=== PATIENT | male | born 1985 | race Caucasian/White ===

== ENCOUNTER 2020-03-04 12:12 | Inpatient (IN) | payer MEDICAID, SELFPAY ==
[2020-03-04] VITALS (10 sets, daily range): BP systolic 118–145; BP diastolic 74–99; PULSE 68–102; RESP 10–23; TEMP 36.4–37.4; O2SAT 97–99; BMI 19.8
--- NOTE | ~2020-03-04 | XR_ITS ---
XR abdomen NG/feed tube insert DATE: 03/04/2020 14:12 INDICATION: Gastrointestinal bleeding. NG tube placement. TECHNIQUE: Portable upright AP view on 03/04/2020 at 1407 hours COMPARISON: None FINDINGS: An NG tube is present in the left upper quadrant of the abdomen within the upper body of th e stomach, the proximal port approximately 1.5-2 cm distal to the diaphragmatic hiatus. Nonspecific bowel gas pattern without evidence of obstruction. The psoas shadows are intact. No visce romegaly is evident. The lower lung zones are clear. No pleural effusion is evident. Heart size is normal. IMPRESSION: NG tube in upper body of stomach Reviewed, dictated and finalized at [facility]. Reviewed, dictated and finalized at [facility].
--- NOTE | 2020-03-04 13:15 | ECG_ITS ---
Measurements Intervals [place] Rate: 67 P: 81 FL: 141 QRS: 89 QRSD: 108 T: 97 QT: 409 QTc: 433 Interpretive Statements SINUS RHYTHM BORDERLINE T WAVE ABNORMALITY- HIGH LATERAL LEADS BORDERLINE ECG Electronically Signed On 03-04-2020 13:55:31 CDT by Simeon Marina D.O.
[2020-03-04] MEDS: SODIUM CHLORIDE 0.9% IV 1,000 ML 999 ML IV CONT (13:22)
[2020-03-04] MEDS: PANTOPRAZOLE SODIUM IV 40 MG VIAL 80 MG IV PUSH (13:24)
[2020-03-04] MEDS: ONDANSETRON INJ 4 MG/2 ML VIAL IV PUSH (13:24)
--- NOTE | 2020-03-04 13:33 | ED.ALCOHOL ---
HPI - Alcohol General Chief Complaint: Alcohol Stated Complaint: Vomiting Blood, Alcohol Detox Time Seen by Provider: 03/04/20 12:32 Source: patient Mode of arrival: ambulatory Limitations: no limitations History of Present Illness HPI narrative: This patient is a 34 year old male with history of alcohol abuse who presents for evaluation of hematemesis. Patient states he has been binging alcohol for 1 week due to a personal loss. THis morning he was trying to drink alcohol and he developed nausea and hematemesis. He states he was vomiting blood for 2 hours. He denies abdominal pain, diarrhea. His last BM was yesterday and he states it was normal. He denies chest pain or sob. He just reports he has nonstop hiccups. He reports that he has been drinking 2 pints of hard liquor daily for 5 days and he has had very little to eat. He states 5 years ago he had hematemesis and he was told it due to either jose tsai tear or an ulcer. He denies history of cirrhosis or esophageal varices. Related Data Allergies Allergy/AdvReac Type Severity Reaction Status Date / Time Sulfa (Sulfonamide Allergy Unknown Unknown Verified 03/25/19 17:39 Antibiotics) lorazepam [From Ativan] Allergy Unknown Verified 03/04/20 12:25 Review of Systems Review of Systems: All systems reviewed & are unremarkable except as noted in HPI and below Constitutional: Constitutional: Denies chills, Reports fatigue and Denies fever(s) Respiratory: Respiratory: Denies cough and Denies dyspnea Gastrointestinal: Gastrointestinal: Denies abdominal pain, Reports hematochezia, Denies diarrhea, Reports nausea and Reports vomiting PMFSH Past Medical History Medical History (Updated 03/04/20 @ 15:41 by Aleida Larsen MD) Upper GI bleed Surgical History Surgical History (Updated 03/04/20 @ 13:37 by Aleida Larsen MD) H/O arthroscopic knee surgery Social History Social History (Updated 03/04/20 @ 13:38 by Aleida Larsen MD) Smoking packs per day: 1 Smoking cigarettes per day: 20.0 Smoking status: Current every day smoker Alcohol intake: current Substance use: never Exam Const: General: alert Orientation/consciousness: patient oriented x3 HENMT: Head: normocephalic and atraumatic Ears: TM's normal bilaterally General nose exam: No nasal polyps present Face and sinus: face symmetric Throat: posterior oropharynx normal Eyes: Pupils: Equal, round and reactive pupils present EOM: EOMs intact bilaterally Chest: Chest palpation & inspection: normal inspection of the chest Resp: Effort & Inspection: normal respiratory effort and no retractions Auscultation: clear to auscultation bilaterally Cardio: Rate: regular rate Rhythm: regular rhythm Heart sounds: no murmurs GI: GI Palp: Yes Soft to palpation, No Tenderness to palpation present (GI), No Guarding due to palpation present (GI), No Rigid due to palpation and No Hernia present Rectal Exam: heme negative stool Skin: General skin exam: normal color Rashes: no rashes Course Consultations Consultation #1: I Discussed case with Dr. Archibald who will consult and perform EGD in the morning. Date: 03/04/20 Time: 15:17 Consultation #2: I Discussed case with Nadia Mendoza, hospitalist [employer] TECHNICIAN who accepts patient to IMU Date: 03/04/20 Time: 15:25 Vital Signs Vital signs: Vital Signs Temperature 97.5 F L 03/04/20 12:20 Pulse Rate 95 03/04/20 12:20 Respiratory Rate 18 03/04/20 12:20 Blood Pressure 141/91 H 03/04/20 12:20 Pulse Oximetry 97 03/04/20 12:20 Temperature 97.5 F L 03/04/20 12:20 Pulse Rate 92 03/04/20 18:34 Respiratory Rate 23 H 03/04/20 18:34 Blood Pressure 128/99 H 03/04/20 18:34 Pulse Oximetry 99 03/04/20 18:00 MDM - Alcohol Lab Data Attestation: I reviewed the patient's lab results. Result diagrams: 03/04/20 13:45 03/04/20 13:45 Labs: Lab Results 03/04/20 03/04/20 03/04/20 Range/Units
[2020-03-04 13:54] LABS: Basophils Absolute Auto 0.1 K/mm3 (0.0-0.1); Basophils Percent Auto 0.9 % (0.2-1.2); Eosinophils Absolute Auto 0.2 K/mm3 (0-0.3); Eosinophils Percent Auto 2.8 % (0-4.4); Hematocrit 49.1 % (42.0-52.0); Hemoglobin 17.8 g/dL (14.0-18.0); Immature Granulocyte Absolute 0.02 K/mm3 (0.00-0.031); Immature Granulocyte Percent A 0.3 % (0-0.5); Lymphocytes Absolute Auto 2.54 K/mm3 (0.9-3.2); Lymphocytes Percent Auto 32.7 % (18.3-44.2); Mean Corpuscular HGB Conc 36.3 g/dl (32-36); Mean Corpuscular Hemoglobin 31.4 pg (26-34); Mean Corpuscular Volume 86.6 fl (80-100); Mean Platelet Volume 9.6 fl (7.4-10.4); Monocytes Absolute Auto 0.5 K/mm3 (0.1-0.6); Monocytes Percent Auto 6.4 % (2.6-8.5); Neutrophils Absolute Auto 4.4 K/mm3 (1.3-6.7); Neutrophils Percent Auto 56.9 % (45.5-73.1); Platelet Count Result 140 k/mm3 (150-375); Red Blood Count 5.67 M/mm3 (4.6-6.20); Red Cell Distribution Width 11.9 % (11.5-14.5); White Blood Count 7.8 K/mm3 (4.5-10.0)
--- NOTE | 2020-03-04 14:04 | PC.NURSE ---
NG tube placed. Dark blood through tubing coming. Xray called for KUB
[2020-03-04 14:05] LABS: INR 0.9; Partial Thromboplastin Time 22.4 SECONDS (22.3-36.8); Prothrombin Time 12.1 Seconds (11.1-14.7)
[2020-03-04 14:06] LABS: Alanine Aminotransferase 60 U/L (4-50); Alkaline Phosphatase 97 U/L (38-126); Anion Gap 25.6 mmol/L (7-16); Aspartate Amino Transferase 149 U/L (17-59); Bilirubin,Total 1.2 mg/dL (0.2-1.3); Blood Urea Nitrogen 12 mg/dL (9-20); Calcium 9.1 mg/dL (8.4-10.2); Carbon Dioxide 23 mmol/L (22-30); Chloride 95 mmol/L (98-107); Estimated CRCL calculation 105 ml/min; Estimated Glomerular Filt Rate > 60; Glucose 86 mg/dL (75-110); Lipase 236 U/L (23-300); Magnesium 2.1 mg/dL (1.6-2.3); Potassium 3.6 mmol/L (3.4-5.0); Sodium 140 mmol/L (137-145)
[2020-03-04 14:19] LABS: Ethanol 325 mg/dL (<10)
--- NOTE | 2020-03-04 14:32 | PC.NURSE ---
Verbal orders from EDP to push NG tubing 2 cm and do lavage suctioning
--- NOTE | 2020-03-04 20:15 | ADMGEN ---
This patient, Kash Hendricks, was admitted to IMU Room 204-01 FROM ER 03/04/201904. Patient/family oriented to hospital policies and general routines including ID bracelet, bed and alarms, visiting hours, pain management, procedures, bathroom and other care routines, personal items, smoking policy, room service/diet, and visiting hours. Valuables list has been completed. Information on how to activate the Rapid Response Team has been discussed. Patient/Family are encouraged to report perceived risks to care and to ask questions if they do not understand what they are told or what they should do.
--- NOTE | 2020-03-04 20:39 | PM.IMHP ---
H&P: HPI History of Present Illness Date/Time: 03/04/20 20:39 Chief complaint: Upper GI hemorrhage, alcohol abuse Narrative: This is a pleasant 34 year old male with known history of alcohol abuse and previous GI bleed who presented to the hospital after vomiting up blood at home today. 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 He also admits that he has had thoughts of harming himself and his previous work partner. His last alcoholic drink was around 8 am this morning. He denies any dark black stools or bright red rectal bleeding. Tonight he feels very anxious, shaky, nauseated and diaphoretic. He denies any recent fever, chills, cough, shortness of breath, abdominal pain, dysuria, hematuria or diarrhea. His last EGD was about 10 years ago and at that time he was diagnosed with a Crystal-Hallman Tear. ER provider has consulted GI specialist, Dr. Archibald. No other complaints. Review of Systems Review of Systems: All systems reviewed & are unremarkable except as noted in HPI and below PMFSH Past Medical History Medical History Upper GI bleed Surgical History Surgical History H/O arthroscopic knee surgery Family History Family History Father Social History Social History Smoking packs per day: 0.5 Smoking cigarettes per day: 10.0 Years smoked: 17 Smoking pack-years: 8.50 Smoking status: Current every day smoker Tobacco type: cigarettes Alcohol intake: current Drinks per week: 7 Substance use: current Substance use type: marijuana and other Other substance usage details: LSD Gender identity (if verbalized by the patient): Male Sexual Orientation (if Verbalized by the Patient): Straight or Heterosexual Spiritual care concerns: No Meds Home Medications and Allergies Home Medications Medication Instructions Recorded Confirmed Type No Home Medications 03/04/20 03/04/20 History Allergies Allergy/AdvReac Type Severity Reaction Status Date / Time Sulfa (Sulfonamide Allergy Unknown Unknown Verified 08/26/19 17:39 Antibiotics) lorazepam [From Ativan] Allergy Unknown Verified 03/04/20 12:25 Vital Signs Vital Signs - 24 hr 03/04/20 12:20 03/04/20 12:49 03/04/20 15:17 Temperature 36.4 C L Pulse Rate 95 84 102 H Respiratory Rate 18 10 L 20 Blood Pressure 141/91 H 129/94 H 143/88 H Pulse Oximetry 97 97 97 03/04/20 16:13 03/04/20 18:00 03/04/20 18:34 Temperature Pulse Rate 90 68 92 Respiratory Rate 11 L 16 23 H Blood Pressure 118/79 125/74 128/99 H Pulse Oximetry 98 99 03/04/20 19:05 03/04/20 20:00 Temperature 37.4 C Pulse Rate 97 85 Respiratory Rate 16 Blood Pressure 124/85 124/85 Pulse Oximetry 98 Exam Const: General: cooperative, alert, awake, in distress moderate, diaphoretic and other (Anxious++ ) Nutritional Appearance: thin Orientation/consciousness: patient oriented x3 HENMT: Head: normal to inspection General nose exam: Normal external nose present Face and sinus: normal facial exam Mouth: Yes Normal oral and palatal mucosa present and Yes oropharynx normal Eyes: Pupils: Equal, round and reactive pupils present EOM: EOMs intact bilaterally Neck: Neck: supple and no JVD Thyroid: thyroid normal Lymphatic: lymphadenopathy not noted Resp: Effort & Inspection: normal respiratory effort Auscultation: clear to auscultation bilaterally Cardio: Rate: regular rate Rhythm: regular rhythm Heart sounds: no murmurs GI: Inspection: normal to inspection Auscultation: normal bowel sounds Skin: General skin exam: normal color and no rashes or lesions noted Neuro: General: oriented to person, oriented to place and other (Visible
[2020-03-04 20:51] LABS: Hematocrit 40.9 % (42.0-52.0); Hemoglobin 14.9 g/dL (14.0-18.0)
--- NOTE | 2020-03-04 21:39 | PC.NURSE ---
This patient, Kash Hendricks, was transferred to icu-7 on 03/04/20 at 2139. Personal belongings sent with patient. Belongings list checked and signed with receiving [ ]. Report given to BRUNA JAMISON [ ]. Appropriate documentation sent with patient.
[2020-03-05] VITALS (15 sets, daily range): BP systolic 126–154; BP diastolic 76–102; PULSE 55–105; RESP 12–23; TEMP 36.3–37.3; O2SAT 96–100
[2020-03-05] MEDS: SODIUM CHLORIDE 0.9% IV 1,000 ML 125 ML IV CONT ×2 (01:16→13:06)
[2020-03-05 01:19] LABS: Hematocrit 40.2 % (42.0-52.0); Hemoglobin 14.5 g/dL (14.0-18.0)
[2020-03-05 04:49] LABS: Basophils Percent Auto 0.4 % (0.2-1.2); Eosinophils Absolute Auto 0.1 K/mm3 (0-0.3); Eosinophils Percent Auto 1.9 % (0-4.4); Hematocrit 38.4 % (42.0-52.0); Hemoglobin 13.7 g/dL (14.0-18.0); Immature Granulocyte Absolute 0.02 K/mm3 (0.00-0.031); Immature Granulocyte Percent A 0.3 % (0-0.5); Lymphocytes Absolute Auto 0.91 K/mm3 (0.9-3.2); Lymphocytes Percent Auto 12.1 % (18.3-44.2); Mean Corpuscular HGB Conc 35.7 g/dl (32-36); Mean Corpuscular Hemoglobin 31.1 pg (26-34); Mean Corpuscular Volume 87.1 fl (80-100); Mean Platelet Volume 9.3 fl (7.4-10.4); Monocytes Absolute Auto 0.7 K/mm3 (0.1-0.6); Monocytes Percent Auto 9.7 % (2.6-8.5); Neutrophils Absolute Auto 5.7 K/mm3 (1.3-6.7); Neutrophils Percent Auto 75.6 % (45.5-73.1); Platelet Count Result 97 k/mm3 (150-375); Red Blood Count 4.41 M/mm3 (4.6-6.20); Red Cell Distribution Width 11.9 % (11.5-14.5); White Blood Count 7.5 K/mm3 (4.5-10.0)
[2020-03-05 05:09] LABS: Alanine Aminotransferase 46 U/L (4-50); Albumin Level 3.9 g/dL (3.5-5.1); Alkaline Phosphatase 63 U/L (38-126); Anion Gap 11.5 mmol/L (7-16); Aspartate Amino Transferase 83 U/L (17-59); Bilirubin,Total 1.5 mg/dL (0.2-1.3); Blood Urea Nitrogen 15 mg/dL (9-20); Calcium 8.7 mg/dL (8.4-10.2); Carbon Dioxide 27 mmol/L (22-30); Chloride 101 mmol/L (98-107); Estimated CRCL calculation 110 ml/min; Estimated Glomerular Filt Rate > 60; Glucose 98 mg/dL (75-110); Potassium 3.5 mmol/L (3.4-5.0); Sodium 136 mmol/L (137-145)
--- NOTE | 2020-03-05 09:06 | WPDGICN ---
Assessment and Plan Assessment and plan (1) Alcohol abuse: Code(s): F10.10 - Alcohol abuse, uncomplicated Status: Acute Assessment and Plan: Patient with a long history of alcoholism strongly encourage alcohol rehab. (2) Acute upper gastrointestinal bleeding: Code(s): K92.2 - Gastrointestinal hemorrhage, unspecified Status: Acute Assessment and Plan: Patient with large amount of upper GI blood loss hematemesis yesterday. Ulcer disease gastritis Crystal-Hallman tear and esophageal varices are all considerations. Plan is for EGD to assess more thoroughly continue proton pump inhibitor therapy in the interim. Monitor hemoglobin closely. (3) Transaminitis: Code(s): R74.0 - Nonspecific elevation of levels of transaminase and lactic acid dehydrogenase [LDH] Status: Acute Assessment and Plan: Elevated AST likely on the basis of alcohol liver disease. Patient encouraged to abstain from alcohol. GI Consult Note Consult date/time: 03/05/20 09:06 HPI: Kash Hendricks is a 34 year old male Seen in evaluation at the request of the emergency room. Patient has a longstanding history of alcoholism in heavy alcohol intake. He decided to enter rehab yesterday and prior to presenting to the emergency room took 1 last drink. He noticed he became nauseated and vomited a large amount of bright red blood. He subsequently presented to the emergency room NG tube lavage continued to reveal blood that has lavage clear throughout the night. Patient denies any history of ongoing abdominal pain. He has been drinking heavily for many years. He does have a history of previous GI bleed with Crystal-Hallman tear 10 years ago that required endoscopy for therapy. He takes no ongoing medications. Family history is noncontributory. Past medical history includes previous arthroscopy. Review of Systems Review of Systems: All systems reviewed & are unremarkable except as noted in HPI and below PMFSH Past Medical History Medical History Upper GI bleed Surgical History Surgical History H/O arthroscopic knee surgery Family History Family History Father Social History Social History Smoking packs per day: 0.5 Smoking cigarettes per day: 10.0 Years smoked: 17 Smoking pack-years: 8.50 Smoking status: Current every day smoker Tobacco type: cigarettes Alcohol intake: current Drinks per week: 7 Substance use: current Substance use type: marijuana and other Other substance usage details: LSD Gender identity (if verbalized by the patient): Male Sexual Orientation (if Verbalized by the Patient): Straight or Heterosexual Spiritual care concerns: No Meds Home Medications and Allergies Home Medications Medication Instructions Recorded Confirmed Type No Home Medications 03/04/20 03/04/20 History Allergies Allergy/AdvReac Type Severity Reaction Status Date / Time Sulfa (Sulfonamide Allergy Unknown Unknown Verified 03/25/19 17:39 Antibiotics) lorazepam [From Ativan] Allergy Unknown Verified 03/04/20 12:25 Vital Signs Vital Signs - 24 hr 03/04/20 12:20 03/04/20 12:49 03/04/20 15:17 Temperature 97.5 F L Pulse Rate 95 84 102 H Pulse Rate [Apical Monitor] Pulse Rate [Left Radial NIBP] Respiratory Rate 18 10 L 20 Blood Pressure 141/91 H 129/94 H 143/88 H Pulse Oximetry 97 97 97 03/04/20 16:13 03/04/20 18:00 03/04/20 18:34 Temperature Pulse Rate 90 68 92 Pulse Rate [Apical Monitor] Pulse Rate [Left Radial NIBP] Respiratory Rate 11 L 16 23 H Blood Pressure 118/79 125/74 128/99 H Pulse Oximetry 98 99 03/04/20 19:05 03/04/20 20:00 03/04/20 21:00 Temperature 99.3 F 97.9 F Pulse Rate 97 85 89
[2020-03-05 09:08] LABS: Hematocrit 37.3 % (42.0-52.0); Hemoglobin 13.4 g/dL (14.0-18.0)
[2020-03-05] MEDS: LACTATED RINGERS 1,000 ML 150 ML IV CONT (10:05)
--- NOTE | 2020-03-05 10:32 | WPDANESEPPF ---
Anes - Initial Pre Proc Eval Procedure: Operation Date: 03/05/20 10:30 Proposed Procedures p Esophagogastroduodenoscopy - Jeffrey Archibald MD Date/Time: 03/05/20 10:32 Surgeon: Max Mcintosh MD Pre Op Diagnosis: Upper GI hemorrhage, alcohol abuse Patient Data Age: 34 Gender: M Height: 6 ft 1 in Weight: 68.3 kg Last Vital Signs Temp 99.1 F 03/05/20 10:09 Pulse 72 03/05/20 10:09 Resp 18 03/05/20 10:09 BP 137/93 H 03/05/20 10:09 Pulse Ox 98 03/05/20 10:09 Allergies Allergy/AdvReac Type Severity Reaction Status Date / Time Sulfa (Sulfonamide Allergy Unknown Unknown Verified 03/05/20 10:06 Antibiotics) lorazepam [From Ativan] Allergy Unknown Verified 03/05/20 10:06 Home Medications Medication Instructions Recorded Confirmed Type No Home Medications 03/04/20 03/05/20 History Laboratory Tests 03/04/20 03/04/20 03/04/20 13:45 13:45 13:45 WBC 7.8 K/mm3 K/mm3 (4.5-10.0) RBC 5.67 M/mm3 M/mm3 (4.6-6.20) Hgb 17.8 g/dL g/dL (14.0-18.0) Hct 49.1 % % (42.0-52.0) MCV 86.6 fl fl (80-100) MCH 31.4 pg pg (26-34) MCHC 36.3 g/dl H g/dl (32-36) RDW 11.9 % % (11.5-14.5) Plt Count 140 k/mm3 L k/mm3 (150-375) MPV 9.6 fl fl (7.4-10.4) Immature Gran % (Auto) 0.3 % % (0-0.5) Neut % (Auto) 56.9 % % (45.5-73.1) Lymph % (Auto) 32.7 % % (18.3-44.2) [place] % (Auto) 6.4 % % (2.6-8.5) Eos % (Auto) 2.8 % % (0-4.4) Baso % (Auto) 0.9 % % (0.2-1.2) Lymph # (Auto) 2.54 K/mm3 K/mm3 (0.9-3.2) [place] # (Auto) 0.5 K/mm3 K/mm3 (0.1-0.6) Eos # (Auto) 0.2 K/mm3 K/mm3 (0-0.3) Baso # (Auto) 0.1 K/mm3 K/mm3 (0.0-0.1) Abs Immat Gran (auto) 0.02 K/mm3 K/mm3 (0.00-0.031) Absolute Neuts (auto) 4.4 K/mm3 K/mm3 (1.3-6.7) Absolute Nucleated RBC 0.0 K/mm3 K/mm3 (0.0-0.012) Nucleated RBC % 0.0 % % (0.0-0.2) PT 12.1 Seconds Seconds (11.1-14.7) INR 0.9 APTT 22.4 SECONDS SECONDS (22.3-36.8) Sodium 140 mmol/L mmol/L (137-145) Potassium 3.6 mmol/L mmol/L (3.4-5.0) Chloride 95 mmol/L L mmol/L (98-107) Carbon Dioxide 23 mmol/L mmol/L (22-30) Anion Gap 25.6 mmol/L H mmol/L (7-16) BUN 12 mg/dL mg/dL (9-20) Creatinine 0.90 mg/dL mg/dL (0.7-1.3) Estim Creat Clear Calc 105 ml/min ml/min Estimated GFR > 60 (59 - ) Glucose 86 mg/dL mg/dL (75-110) Calcium 9.1 mg/dL mg/dL (8.4-10.2) Magnesium 2.1 mg/dL mg/dL (1.6-2.3) Total Bilirubin 1.2 mg/dL mg/dL (0.2-1.3) AST 149 U/L H U/L (17-59) ALT 60 U/L H U/L (4-50) Alkaline Phosphatase 97 U/L U/L (38-126) Total Protein 8.0 g/dL g/dL (6.3-8.2) Albumin 5.0 g/dL g/dL (3.5-5.1) Lipase 236 U/L U/L (23-300) Ethyl Alcohol Blood Type Antibody Screen 03/04/20 03/04/20 03/04/20 13:45 13:45 20:36 WBC RBC Hgb 14.9 g/dL g/dL (14.0-18.0) Hct 40.9 % L % (42.0-52.0) MCV MCH MCHC RDW Plt Count MPV Immature Gran % (Auto) Neut % (Auto) Lymph % (Auto) [place] % (Auto) Eos % (Auto) Baso % (Auto) Lymph # (Auto) [place] # (Auto) Eos # (Auto) Baso # (Auto) Abs Immat Gran (auto) Absolute Neuts (auto) Absolute Nucleated RBC Nucleated RBC % PT INR APTT Sodium Potassium Chloride Carbon D
[2020-03-05] MEDS: SIMETHICONE ORAL SUSPENSION 20 MG/0.3 ML 30 ML BOTTLE 0.6 ML PO (10:38)
[2020-03-05] MEDS: SUCRALFATE SUSP 100 MG/ML 10 ML UDC 1000 MG PO ×3 (12:49→23:31)
[2020-03-05] MEDS: chlordiazePOXIDE 25 MG CAPSULE PO ×2 (12:49→17:33)
--- NOTE | 2020-03-05 18:49 | PM.IMPN ---
Progress Note: A&P Assessment and Plan (1) Acute upper gastrointestinal bleeding: Code(s): K92.2 - Gastrointestinal hemorrhage, unspecified Status: Acute Assessment and Plan: Hgb 17.8 and has dropped to 13.4 but could be related to IV fluids as well. EGD performed today showing reflux esophagitis grade 2 which could be contributing to bleeding. No side acute gastric ulcer as well as evidence of NG tube trauma. Continue Protonix. Continue Carafate. Appreciate GI input. Stop IV fluids when eating okay. (2) Alcohol withdrawal: Qualifiers: Complication of substance-induced condition: with unspecified complication Qualified Code(s): F10.239 - Alcohol dependence with withdrawal, unspecified Code(s): F10.239 - Alcohol dependence with withdrawal, unspecified Status: Acute Assessment and Plan: [facility] protocol in place and currently at 8. Scheduled Librium started. Valium available as needed for signs or symptoms of withdrawal. Add thiamine and folate. (3) Alcohol abuse: Code(s): F10.10 - Alcohol abuse, uncomplicated Status: Acute Assessment and Plan: patient has been educated about the benefits of abstain from alcohol. Lodging Facilities Manager to provide information about rehab an outpatient services. (4) Suicidal ideation: Code(s): R45.851 - Suicidal ideations Status: Acute Assessment and Plan: Patient denies suicide ideation at this time. He states he was inebriated. He is stable for discharge. Will have Crisis evaluate the patient for safety contract. (5) Transaminitis: Code(s): R74.0 - Nonspecific elevation of levels of transaminase and lactic acid dehydrogenase [LDH] Status: Acute Assessment and Plan: AST 149 and ALT 60. Levels are trending downward on repeat. Total bilirubin slightly higher than on admission. Suspect this is related to alcoholic hepatitis. (6) Tobacco dependence: Code(s): F17.200 - Nicotine dependence, unspecified, uncomplicated Status: Chronic Assessment and Plan: patient has been educated about the benefits of smoking cessation. (7) Thrombocytopenia: Code(s): D69.6 - Thrombocytopenia, unspecified Status: Acute Assessment and Plan: Plt count normal last year but low on admission at 140K. lt count dropped to 97K today probably related to toxic effects from alcohol. Continue to follow for now. Subjective Date/time seen: 03/05/20 18:49 Interval history: 34-year-old male here for upper GI bleed and alcohol abuse. No issues overnight. He denies chest pain abdominal pain. No nausea or vomiting. He denies suicidal ideation. He does not have a plan. He has guns at home. He lives with the stepmother, stepbrother and stepsister. Does have a history of depression. Exam Narrative: Exam Narrative: AF 154/102 67 Gen - NARD Chest - CTA bilaterally, nml RR CV - RRR S1/S2.Telemetry showing no significant dysrhythmias Abd - Soft, NT/ND, Positive BS Ext - No pedal edema Neuro - Alert and oriented. Nonfocal exam. Psych - Nml mood and affect. good eye contact. pleasant and cooperative Skin - Warm and dry Objective Data Vital Signs Vital Signs: Vital Signs - 24 hr 03/04/20 19:05 03/04/20 20:00 03/04/20 21:00 Temperature 99.3 F 97.9 F Pulse Rate 97 85 89 Pulse Rate [Apical Monitor] Pulse Rate [Left Radial NIBP] 99 Respiratory Rate 16 14 Blood Pressure 124/85 124/85 145/79 H Pulse Oximetry 98 99 03/04/20 22:00 03/05/20 00:00 03/05/20 02:00 Temperature Pulse Rate 79 98 98 Pulse Rate [Apical Monitor] Pulse Rate [Left Radial NIBP] 99 Respiratory Rate 18 Blood Pressure 138/78 Pulse Oximetry 96 03/05/20 04:00 03/05/20 08:00 03/05/20 10:09 Temperature 97.6 F 98.1 F 99.1 F Pulse Rate 66 69 72 Pulse Rate [Apical Monitor] 57 L Pulse Rate [Left Radial NIBP] 65 57 L Respiratory Rate 14 19 18
[2020-03-05] MEDS: THIAMINE HCL 100 MG TABLET PO (20:55)
[2020-03-05] MEDS: FOLIC ACID 1 MG TABLET PO (23:30)
[2020-03-05] MEDS: PANTOPRAZOLE 40 MG TABLET PO (23:30)
[2020-03-06] VITALS: BP 127/84; BP 133/87; PULSE 65; PULSE 68; RESP 14
[2020-03-06] MEDS: chlordiazePOXIDE 25 MG CAPSULE PO ×3 (03:02→12:35)
[2020-03-06 04:17] LABS: Hematocrit 37.9 % (42.0-52.0); Hemoglobin 13.4 g/dL (14.0-18.0); Immature Platelet Fraction Pct 3.2 % (0.9-11.2); Mean Corpuscular HGB Conc 35.4 g/dl (32-36); Mean Corpuscular Hemoglobin 31.8 pg (26-34); Platelet Count Result 85 k/mm3 (150-375); Red Blood Count 4.21 M/mm3 (4.6-6.20); White Blood Count 5.2 K/mm3 (4.5-10.0)
[2020-03-06 05:58] VITALS: BP 128/72; BP 133/87; PULSE 60; PULSE 65; PULSE 68; RESP 20; TEMP 36.9
[2020-03-06] MEDS: FOLIC ACID 1 MG TABLET PO (07:41)
[2020-03-06] MEDS: THIAMINE HCL 100 MG TABLET PO (07:41)
[2020-03-06] MEDS: PANTOPRAZOLE 40 MG TABLET PO (07:41)
[2020-03-06] MEDS: SUCRALFATE SUSP 100 MG/ML 10 ML UDC 1000 MG PO ×2 (07:42→12:35)
--- NOTE | 2020-03-06 07:56 | WPDANESPN ---
Anes - Prog Note Post-Op Date/Time: 03/06/20 07:56 Cardiovascular status: normal Respiratory status: normal Airway patency: baseline Mental status: baseline Post-Op hydration status: normal Vital Signs: Last Vital Signs Temp 36.9 C 03/06/20 05:58 Pulse 68 03/06/20 05:58 Resp 20 03/06/20 05:58 BP 133/87 03/06/20 05:58 Pulse Ox 100 03/05/20 20:00 I/O: Intake & Output 03/05/20 03/05/20 03/06/20 15:59 23:59 07:59 Intake Total 2310 1250 600 Output Total 1925 Balance 2310 1250 -1325 Laboratory Tests 03/06/20 03:39 03/05/20 04:18 03/05/20 03/06/20 09:02 03:39 WBC 5.2 RBC 4.21 L Hgb 13.4 L 13.4 L Hct 37.3 L 37.9 L MCV 90.0 MCH 31.8 MCHC 35.4 RDW 12.0 Plt Count 85 L MPV 10.0 % Immature Plt Fraction 3.2 Post-procedural complaints: none Patient Feedback: Patient satisfied with anesthetic care.
[2020-03-06 08:00] VITALS: PULSE 68
[2020-03-06 08:02] VITALS: BP 126/88; PULSE 71; RESP 11
[2020-03-06 09:00] VITALS: BP 126/82; PULSE 78
--- NOTE | 2020-03-06 10:38 | WPDGIPROGNO ---
Progress Note: A&P Additional Plan Patient alert and comfortable this morning. Tolerating diet with no difficulties. No additional bleeding reported. Physical exam reveals Vital Signs to be stable. HEENT exam is anicteric. Lungs are clear to auscultation and percussion. Heart without murmur. Abdomen bowel sounds are present soft nontender with no organomegaly. Labs reveal hemoglobin 13, hematocrit 37. Yesterday's LFTs Total bilirubin 1.5, AST 83, ALT 46. impression 1. Resolved upper GI bleeding. 2. Erosive esophagitis and gastric ulcer. Plan is to avoid nonsteroidal anti-inflammatory agents. Continue proton pump inhibitor orally. Alcohol avoidance strongly encouraged as well. Follow-up EGD suggested in 2 months. 3. Alcohol abuse. Alcohol rehab strongly encourage. Plan to advance to a bland diet. Continue PPI. Disposition per primary care service. Subjective Date/time seen: 03/06/20 10:38 Objective Data Vital Signs Vital Signs: Vital Signs - 24 hr 03/05/20 10:47 03/05/20 10:57 03/05/20 11:07 Temperature Pulse Rate 65 64 73 Pulse Rate [Apical Monitor] Respiratory Rate 19 23 H 22 H Blood Pressure 126/83 128/91 H 138/90 Pulse Oximetry 97 100 98 03/05/20 12:00 03/05/20 13:00 03/05/20 13:30 Temperature 97.4 F L 97.9 F Pulse Rate 63 64 88 Pulse Rate [Apical Monitor] 61 Respiratory Rate 17 16 Blood Pressure 133/102 H 142/89 H 154/102 H Pulse Oximetry 100 03/05/20 14:00 03/05/20 16:00 03/05/20 18:00 Temperature Pulse Rate 62 67 Pulse Rate [Apical Monitor] 55 L Respiratory Rate Blood Pressure Pulse Oximetry 03/05/20 20:00 03/06/20 00:00 03/06/20 05:58 Temperature 98.4 F Pulse Rate 85 65 60 Pulse Rate [Apical Monitor] 68 68 68 Respiratory Rate 12 14 20 Blood Pressure 127/84 133/87 128/72 Pulse Oximetry 100 03/06/20 08:02 Temperature Pulse Rate 71 Pulse Rate [Apical Monitor] Respiratory Rate 11 L Blood Pressure 126/88 Pulse Oximetry Intake/Output Intake/Output: Intake & Output 03/03/20 03/04/20 03/05/20 03/06/20 23:59 23:59 23:59 23:59 Intake Total 1000 4070 1560 Output Total 700 1450 1925 Balance 300 8840 -365 Meds/Results Medications: Active Medications Generic Name Dose Route Start Last Admin Trade Name Freq PRN Reason Stop Dose Admin Chlordiazepoxide HCl 25 mg 03/05/20 12:00 03/06/20 06:32 Librium Po PO 25 mg Q6HR LUX Administration Diazepam 5 mg 03/05/20 12:38 03/05/20 23:03 Valium Inj IV PUSH 5 mg Q3H PRN Administration Alcohol Withdrawal Folic Acid 1 mg 03/05/20 19:00 03/06/20 07:41 Folic Acid PO 1 mg DAILY LUX Administration Lidocaine HCl 0.3 ml 03/05/20 09:04 Xylocaine 2% Local Inj INTRADERM ONCE PRN to numb area Pantoprazole Sodium 40 mg 03/05/20 21:00 03/06/20 07:41 Protonix PO 40 mg Q12HR LUX Administration Simethicone 0.6 ml 03/05/20 10:38 03/05/20 10:38 Mylicon Infants Drops PO 0.6 ml ONCE PRN Administration Gas Discomfort Sucralfate 1,000 mg 03/05/20 11:30 03/06/20 07:42 Carafate PO 1,000 mg ACHS LUX Administration Thiamine HCl 100 mg 03/05/20 19:00 03/06/20 07:41 Vitamin B-1 PO 100 mg QAM LUX Administration Radiology Results: ITS Impressions Abdomen X-Ray 03/04/20 14:17 IMPRESSION: NG tube in upper body of stomach Labs Labs: Laboratory Results - last 24 hr 03/06/20 03:39 WBC 5.2 RBC 4.21 L Hgb 13.4 L Hct 37.9 L MCV 90.0 MCH 31.8 MCHC 35.4 RDW 12.0 Plt Count 85 L MPV 10.0 % Immature Plt Fraction 3.2
--- NOTE | 2020-03-06 11:50 | PM.DS ---
DS: Admitting Diagnosis Admitting Diagnosis Admitting Diagnosis: Gastrointestinal hemorrhage, unspecified DS: Discharge Diagnosis Discharge Diagnosis (1) Acute upper gastrointestinal bleeding: Code(s): K92.2 - Gastrointestinal hemorrhage, unspecified Status: Acute Assessment and Plan: Hgb 17.8 on admission but has dropped to 13.4 - could be related to IV fluids as well. EGD performed 03/05/20 showing nonbleeding reflux esophagitis grade 2 which could be contributing to blood loss and acute gastric ulcer as well as evidence of NG tube trauma. Started on Protonix and Carafate. Appreciate GI input. (2) Alcohol withdrawal: Qualifiers: Complication of substance-induced condition: with unspecified complication Qualified Code(s): F10.239 - Alcohol dependence with withdrawal, unspecified Code(s): F10.239 - Alcohol dependence with withdrawal, unspecified Status: Acute Assessment and Plan: [facility] protocol in place and currently at 8. Scheduled Librium started. Valium available as needed for signs or symptoms of withdrawal. Thiamine and folate added. No signifincat withdrawal symptoms seen (3) Alcohol abuse: Code(s): F10.10 - Alcohol abuse, uncomplicated Status: Acute Assessment and Plan: Patient has been educated about the benefits of abstain from alcohol. Copy Messenger provided information about rehab and outpatient services. (4) Suicidal ideation: Code(s): R45.851 - Suicidal ideations Status: Acute Assessment and Plan: Patient denies suicide ideation at this time. He states he was inebriated. Crisis evaluated the patient and safety contract completed. Instructed patient to have gun locks placed and to give the keys to a loved one. He voices understanding. (5) Transaminitis: Code(s): R74.0 - Nonspecific elevation of levels of transaminase and lactic acid dehydrogenase [LDH] Status: Acute Assessment and Plan: AST 149 and ALT 60. Levels are trending downward on repeat. Total bilirubin slightly higher than on admission. Suspect this is related to alcoholic hepatitis. Abstaining from alcohol is a must. (6) Tobacco dependence: Code(s): F17.200 - Nicotine dependence, unspecified, uncomplicated Status: Chronic Assessment and Plan: patient has been educated about the benefits of smoking cessation. (7) Thrombocytopenia: Code(s): D69.6 - Thrombocytopenia, unspecified Status: Acute Assessment and Plan: Plt count normal last year but low on admission at 140K. lt count dropped to 85K today probably related to toxic effects from alcohol. Monitor as outpatient DS: Summary Hospital Course Reason for hospitalization: 34yo male here for GI bleed. Please see H&P for details. Hospital Course: As above Time Spent with Patient Time attestation: Total time spent providing and/or coordinating discharge services:32 minutes Time spent: Greater than 30 minutes Specific discharge activities: patient Education Exam Narrative: Exam Narrative: AF 126/82 78 Gen - NARD Chest - CTA bilaterally, nml RR CV - RRR S1/S2.Telemetry showing no significant dysrhythmias Abd - Soft, NT/ND, Positive BS Ext - No pedal edema Neuro - Alert and oriented. Nonfocal exam. Psych - Nml mood and affect. Skin - Warm and dry DS: Data Data Completed and Pending Labs on day of discharge: Labs from last 24 hours 03/06/20 03:39 WBC 5.2 RBC 4.21 L Hgb 13.4 L Hct 37.9 L MCV 90.0 MCH 31.8 MCHC 35.4 RDW 12.0 Plt Count 85 L MPV 10.0 % Immature Plt Fraction 3.2 Discharge Plan Discharge Attending physician on discharge: David Sterling Consulting providers: Jeffrey Archibald Discharging Clinician: David Sterling Anticipated Discharge Date/Time: 03/06/20 11:58 Patient Disposition: Home, Self-Care Activity: as tolerated Diet: regular
[2020-03-06 12:18] LABS: Alanine Aminotransferase 49 U/L (4-50); Albumin Level 3.8 g/dL (3.5-5.1); Alkaline Phosphatase 60 U/L (38-126); Aspartate Amino Transferase 101 U/L (17-59); Bilirubin,Total 0.8 mg/dL (0.2-1.3)
[2020-03-06 13:00] VITALS: BP 123/70; PULSE 82
--- NOTE | 2020-03-13 14:18 | PC.NURSE ---
Received a call from patient requesting a few librium tablets to help him sleep until he can get into [facility] on 03/17. Spoke with Dr. Sterling and he denied the refill. Patient had weaning dose at [place]. Will need to discuss with PCP or [facility] staff.
== END 2020-03-06 13:35 | disposition home or self-care (01) | DRG 241 ==
LOC: ANHED 15:41 → ANHIMU 18:18 → ANHICU 21:38
PROVIDERS: Family Medicine; Internal Medicine Gastroenterology; Admitting Provider Family Medicine; Emergency Provider General Practice; Visit Provider Internal Medicine
PROC: 0DJ08ZZ Inspection of Upper Intestinal Tract, Via Natural or Artificial Opening Endoscopic (ICD-10-PCS; CPT 43235; principal; 2020-03-05 10:30)
DX: K25.0 Acute gastric ulcer with hemorrhage (principal); K21.0 Gastro-esophageal reflux disease with esophagitis; K22.8 Other specified diseases of esophagus; K22.10 Ulcer of esophagus without bleeding; R45.851 Suicidal ideations; F17.210 Nicotine dependence, cigarettes, uncomplicated; F10.239 Alcohol dependence with withdrawal, unspecified; R74.0 Nonspecific elevation of levels of transaminase and lactic acid dehydrogenase [LDH]; D69.6 Thrombocytopenia, unspecified; K31.89 Other diseases of stomach and duodenum; T78.8XXA Other adverse effects, not elsewhere classified, initial encounter; Z72.89 Other problems related to lifestyle
CPT/HCPCS: 36415; 80053; 80076; 80307; 83690; 83735; 85014; 85018; 85025; 85027; 85055; 85610; 85730; 86850; 86900; 86901; 87081; 93005; 96361; 96365; 96366; 96374; 96375; 96376; 99285; A9270; C9113; G0378; G0379; J2001; J2354; J2405; J2704; J3360; J3411; J3475; J7030; J7042; J7060; J7120

== ENCOUNTER 2020-03-10 12:36 | Outpatient (CLI) | payer MEDICAID, SELFPAY ==
[2020-03-10 13:34] LABS: Hematocrit 40.3 % (42.0-52.0); Hemoglobin 14.1 g/dL (14.0-18.0); Mean Corpuscular Hemoglobin 32.2 pg (26-34); Mean Platelet Volume 9.8 fl (7.4-10.4); Platelet Count Result 183 k/mm3 (150-375); Red Blood Count 4.38 M/mm3 (4.6-6.20); Red Cell Distribution Width 12.9 % (11.5-14.5); White Blood Count 5.2 K/mm3 (4.5-10.0)
[2020-03-10 13:46] LABS: Alanine Aminotransferase 64 U/L (4-50); Albumin Level 4.4 g/dL (3.5-5.1); Alkaline Phosphatase 52 U/L (38-126); Anion Gap 8 mmol/L (8-16); Aspartate Amino Transferase 70 U/L (17-59); Bilirubin,Total 0.3 mg/dL (0.2-1.3); Blood Urea Nitrogen 15 mg/dL (9-20); Calcium 9.2 mg/dL (8.4-10.2); Carbon Dioxide 28 mmol/L (22-30); Chloride 105 mmol/L (98-107); Estimated Glomerular Filt Rate > 60; Glucose 95 mg/dL (75-110); Potassium 3.7 mmol/L (3.4-5.0); Sodium 141 mmol/L (137-145)
== END 2020-03-10 12:37 | disposition home or self-care (01) ==
PROVIDERS: Visit Provider Internal Medicine
DX: D69.6 Thrombocytopenia, unspecified (principal); R74.0 Nonspecific elevation of levels of transaminase and lactic acid dehydrogenase [LDH]
CPT/HCPCS: 36415; 80053; 85027